=== PATIENT | male | born 1980 | race American Indian/Alaskan Native ===

== ENCOUNTER 2017-02-26 23:26 | Inpatient (IN) | payer MEDICAID ==
--- NOTE | 2017-02-26 23:40 | C.PDOC ---
History Of Present Illness Patient presents to the ER with a complaint of being depressed and hearing voices telling him to hurt himself. Denies HI or SI. Time Seen by Provider: 02/26/17 23:38 Chief Complaint (Nursing): Psychiatric Evaluation History Per: Patient History/Exam Limitations: no limitations Onset/Duration Of Symptoms: Days Current Symptoms Are (Timing): Still Present Suicide/Self Injury Attempted (Context): None Modifying Factor(s): None Associated Symptoms: denies: Depression, Suicidal Thoughts, Suicidal Plan Involuntary Hold By: None Recent travel outside of the [place]: No Past Medical History Reviewed: Historical Data, Nursing Documentation, Vital Signs Vital Signs: Last Vital Signs Temp 97.9 F 02/27/17 05:10 Pulse 61 02/27/17 05:10 Resp 16 02/27/17 05:10 BP 126/86 02/27/17 05:10 Pulse Ox 97 02/27/17 05:10 - Medical History PMH: Anxiety, Schizophrenia Surgical History: No Surg Hx Family History: States: No Known Family Hx - Social History Hx Alcohol Use: No Hx Substance Use: No - Immunization History Hx Tetanus Toxoid Vaccination: No Hx Influenza Vaccination: No Hx Pneumococcal Vaccination: No Review Of Systems Constitutional: Negative for: Fever, Chills Eyes: Negative for: Vision Change Cardiovascular: Negative for: Chest Pain Respiratory: Negative for: Shortness of Breath Gastrointestinal: Negative for: Nausea, Vomiting, Diarrhea Musculoskeletal: Negative for: Back Pain Skin: Negative for: Rash Neurological: Negative for: Weakness Psych: Negative for: Suicidal ideation, Other (Homicidal ideation) Physical Exam - Physical Exam Appears: Non-toxic, No Acute Distress Skin: Warm, Dry Head: Normacephalic Eye(s): bilateral: Normal Inspection Oral Mucosa: Moist Neck: Supple Chest: Symmetrical, No Tenderness Cardiovascular: Rhythm Regular, No Murmur Respiratory: Normal Breath Sounds, No Rales, No Rhonchi, No Wheezing Gastrointestinal/Abdominal: Soft, No Tenderness Back: No CVA Tenderness Extremity: Normal ROM Extremity: Bilateral: Atraumatic, Normal Color And Temperature Neurological/Psych: Oriented x3, Normal Speech, Normal Cognition Gait: Steady ED Course And Treatment - Laboratory Results Result Diagrams: 02/27/17 00:09 02/27/17 00:09 O2 Sat by Pulse Oximetry: 97 (Room air) Pulse Ox Interpretation: Normal Progress Note: Blood work and urinalysis ordered. Crisis notified. Disposition Discussed With Dr.: Loyd Whyte Comment: accepted the pt on hisservice and took over the care at 5:23 AM Doctor Will See Patient In The: Hospital Counseled Patient/Family Regarding: Studies Performed, Diagnosis - Disposition Disposition: HOSPITALIZED Disposition Time: 23:39 Condition: FAIR Forms: [facility] ([place]) - POA Present On Arrival: None - Clinical Impression Clinical Impression: Schizoaffective disorder - Scribe Statement The provider has reviewed the documentation as recorded by the Scribe Matthew Rojas All medical record entries made by the Scribe were at my direction and personally dictated by me. I have reviewed the chart and agree that the record accurately reflects my personal performance of the history, physical exam, medical decision making, and the department course for this patient. I have also personally directed, reviewed, and agree with the discharge instructions and disposition. Decision To Admit - Pt Status Changed To: Hospital Disposition Of: Inpatient - Admit Certification Admit to Inpatient:: After my assessment, the patient will require hospitalization for at least two midnights. This is because of the severity of symptoms shown, intensity of services needed, and/or the medical risk in this patient being treated as an outpatient. - InPatient: Physician Admission Certification: I certify that this patient requires 2 or more midnights of care for the following reason:: After my assessment, the patient will require hospitalization for at least two midnights. This is because of the severity of symptoms shown, intensity of services needed, and/or the medical risk in this patient being treated as an outpatient. - . Bed Request Type: Psychiatry Admitting Physician: Loyd Whyte Patient Diagnosis: Schizoaffective disorder
[2017-02-27 00:14] LABS: BASO % 0.5 % (0.0-2.0); EOS # 0.3 K/uL (0.0-0.7); EOS % 3.4 % (0.0-4.0); HEMATOCRIT 42.7 % (35.0-51.0); LYMPH # 1.6 K/uL (1.0-4.3); LYMPH % 20.8 % (20.0-40.0); MEAN CELL VOLUME 94.7 fL (80.0-94.0); MEAN CORPUSCULAR HGB CONC 32.7 g/dL (33.0-37.0); MEAN PLATELET VOLUME 8.6 fL (7.2-11.7); MONO # 0.9 K/uL (0.0-0.8); MONO % 10.9 % (0.0-10.0); NRBC % 0.1 % (0.0-2.0); RED CELL DISTRIBUTION WIDTH 13.8 % (11.5-14.5); WHITE BLOOD COUNT 7.9 K/uL (4.8-10.8)
[2017-02-27 00:22] LABS: CHLORIDE 101 mmol/L (98-107); POTASSIUM 3.6 mmol/L (3.6-5.2); SODIUM 141 mmol/L (132-148)
[2017-02-27 00:24] LABS: ALB/GLOB RATIO 1.1 (1.0-2.1); ALKALINE PHOSPHATASE 74 U/L (38-126); AST/SGOT 28 U/L (17-59); BILIRUBIN,TOTAL 0.7 mg/dL (0.2-1.3); CARBON DIOXIDE 29 mmol/L (22-30); GFR AFRICAN-AMERICAN > 60; TOTAL PROTEIN 6.9 g/dL (6.3-8.3)
[2017-02-27 00:25] LABS: ALCOHOL SERUM < 10 mg/dl (0-10); ALT/SGPT 35 U/L (21-72); BLOOD UREA NITROGEN 10 mg/dL (9-20); CALCIUM 9.1 mg/dl (8.6-10.4); GLUCOSE,RANDOM 88 mg/dL (75-110)
[2017-02-27 02:30] LABS: RBC URINE < 1 /hpf (0-3); URINE BILIRUBIN NEGATIVE (NEGATIVE); URINE BLOOD NEGATIVE (NEGATIVE); URINE COLOR Yellow (YELLOW); URINE GLUCOSE (UA) NORMAL (Normal); URINE KETONE NEGATIVE (NEGATIVE); URINE LEUKOCYTE ESTERASE NEG Leu/uL (Negative); URINE PROTEIN NEGATIVE (NEGATIVE)
--- NOTE | 2017-02-27 08:35 | PCM.BM ---
<Maritza Borjas - Last Filed: 02/27/17 08:32> Treatment Plan Problems - Problems identified on initial assessmt Depression Date Initiated: 02/27/17 Time Initiated: 08:30 Assessment reference: NA Status: Active Substance Abuse Date Initiated: 02/27/17 Time Initiated: 08:30 Assessment reference: NA Status: Active Treatment assets and liabiliti Patient Assests: cooperative, ADL independent, cognitively intact Patient Liabilities: live alone, substance abuse (PCP Debra) - Milieu Protocol Maintain good personal hygiene: daily Encourage regular showers Maintain personal safety: every shift Educate patient to report safety concerns to staff, every shift Monitor environment for contraband/sharps Medication safety: Monitor for expected outcome, potential side effects: every shift, Assess barriers to learning: every shift, Assess readiness for medication education: every shift <Sushma Cochran - Last Filed: 03/01/17 08:59> Discharge/Continuing Care - Education Needs Education Needs: Patient Medication, Patient Placement options, Patient Community resources - Discharge Discharge Criteria: Tolerates medication w/o severe side effects, Free of Suicidal thoughts, No longer exhibiting s/s of withdrawal, Reduction of target symptoms <Loyd Whyte - Last Filed: 03/01/17 11:13> - Diagnosis (1) Schizoaffective disorder Status: Acute Interventions: 03/01/17 11:13 * Assess/adjust medications daily and /or as needed * See patient on an individual basis 7x/week to assess status of hallucinations * Discuss risks, benefits, side effects and alternatives of medications *
--- NOTE | 2017-02-27 10:39 | PCM.PSYCH ---
Initial Psychiatric Evaluation - Initial Psychiatric Evaluation Type of Admission: Voluntary Legal Status: Capacity Chief Complaint (in patient's own words): I was hearing voices' History of Present Illness and Precipitating Events: Pt. is a 36 Y/O AA single, unemployed male, who came to the hospital because of hearing voices. Pt. reports that he also was using PCP, and marijuana. Pt. remained disorganized and internally preoccupied throughout the interview. He remained a poor historian and was superficially cooperative but guarded about the details. Patient reports that yesterday he went by to see his 15 year old daughter and his daughter mother called the family services assistant on him. Pt. reports that he was feeling depressed and then he started to use drugs. Pt. reports that he has been hearing voices for a long time and they tell him that he is "no good" because he does not have a job" Pt. reports that he was prescribed Risperdal in the past and the medication helped him. Pt. reports that his family is not very supportive of him because of the drugs involvement. 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 Pt. reports that he stopped working because of his mental illness. Patient remained irritable and agitated and appeared paranoid and delusional. He reports of auditory hallucinations, hearing voices of god and spirits and reports visual hallucinations, seeing spirits. Pt. denies any court involvement or arrest. Pt. reports depressed mood but denies any thoughts of hurting himself. He appeared disheveled and unkempt. Past medical history None reported Past Psychiatric History - Past Psychiatric History Previous Treatment History: Inpatient Pertinent Medical Hx (Current Medical&Sleep Prob, Allergies): Allergies Allergy/AdvReac Type Severity Reaction Status Date / Time No Known Allergies Allergy Unverified 02/26/17 23:36 No Known Home Med 02/26/17 Review of Systems - Review of Systems All systems: reviewed and no additional remarkable complaints except - Psychiatric Psychiatric: Anxiety, Irritability, Paranoia Mental Status Examination - Personal Presentation Personal Presentation: Looks stated age - Affect Affect: Constricted - Motor Activity Motor Activity: Psychomotor Retardation - Reliability in Providing Information Reliability in Providing Information: Poor, due to alteration in thoughts, Poor , due to altered mood - Speech Speech: Disorganized - Mood Mood: Depressed, Anxious - Formal Thought Process Formal Thought Process: Hallucinations, Delusions, Paranoia, Loosening of associations - Hallucinations/Delusions Hallucinations: Visual, Auditory Delusions: Persecution - Obsessions/Compulsions Obsessions: No Compulsions: No - Cognitive Functions Orientation: Person, Place, Situation, Time Sensorium: Alert Attention/Concentration: Attentive Abstract Thinking: [place] Estimate of Intelligence: Below average Judgement: Imparied, as evidence by: Poor judgement, Imparied, as evidence by: Lack of insight into illness - Risk Risk: Suicidal, Diminished functioning - Strength & Assets Inventory Strength & Assets Inventory: Family support DSM 5 DX - DSM 5 DSM 5 Diagnosis: Schizoaffective disorder bipolar type PCP use disorder moderate cannabis use disorder mild - Recommended/Plan of Treatment Treatment Recommendations and Plan of Treatment: Schizoaffective disorder bipolar type CBT Psychoeducation Supportive therapy, group therapy, individual therapy Risperdal 2 mg by mouth daily at bedtime Celexa 20 mg pO Daily Neurontin 100 mg by mouth 3 times a day Trazodone 50 mg by mouth daily at bedtime PCP use disorder moderate CBT Psychoeducation Supportive therapy, individual therapy Use OR for abstinence Cannabis use disorder mild CBT Psychoeducation Supportive therapy, individual therapy Use OR for abstinence - Smoking Cessation Smoking Cessation Initiated: No
--- NOTE | 2017-02-28 11:46 | PCM.PYCHPN ---
Psychiatric Progress Note - Psychiatric Progress Note Patient seen today, length of contact: 15 min Patient Chief Complaint: I am still hearing voices' Problems Identified/Issues Discussed: Patient seen and evaluated, chart reviewed and discussed with the nurse. Patient remained disorganized and internally preoccupied. Patient remained isolated, confined and withdrawn. He still reports of hearing voices. Patient still appears paranoid and delusional. He reports depressed mood and remained isolated and withdrawn. He denies any suicidal ideation or homicidal ideation. He is taking medication and denies any side effects. Supportive therapy and psychoeducation were given. Medication Change: Yes (Start Depakote, start Prolixin, DC Risperdal) Medical Record Reviewed: Yes Mental Status Examination - Cognitive Function Orientation: Person, Place, Situation, Time Memory: Intact Attention: WNL Concentration: Poor Association: Loose Fund of Knowledge: Poor - Mood Mood: Depressed, Anxious - Affect Affect: Constricted - Speech Speech: Soft - Formal Thought Process Formal Thought Process: Hallucinations, Delusions, Paranoia, Loosening of associations - Suicidal Ideation Suicidal Ideation: No - Homicidal Ideation Homicidal Ideation: No Goal/Treatment Plan - Goal/Treatment Plan Need for Continued Stay: Discharge may exacerbated symptoms, Severe functional impairment Progress Toward Problem(s) and Goals/Treatment Plan: Schizoaffective disorder bipolar type CBT Psychoeducation Supportive therapy, group therapy, individual therapy DC Risperdal 2 mg by mouth daily at bedtime Start Depakote 500 mg by mouth twice a day Celexa 10 mg pO Daily Neurontin 100 mg by mouth 3 times a day Trazodone 100 mg by mouth daily at bedtime Start Prolixin 5 mg by mouth twice a day PCP use disorder moderate CBT Psychoeducation Supportive therapy, individual therapy Use MO for abstinence Cannabis use disorder mild CBT Psychoeducation Supportive therapy, individual therapy Use MO for abstinence - Smoking Cessation Smoking Cessation Initiated: No
[2017-02-28] MEDS: Divalproex 500 mg DR Tab PO SCH (22:02)
[2017-03-01 08:13] VITALS: BP 104/69; PULSE 55; RESP 19; TEMP 97.9; O2SAT 99
[2017-03-01] MEDS: Divalproex 500 mg DR Tab PO SCH (09:30)
--- NOTE | 2017-03-01 10:34 | PCM.PYCHDC ---
Mental Status Examination - Mental Status Examination Orientation: Person, Place, Situation, Time Memory: Intact Mood: Neutral Affect: Constricted Speech: Soft Attention: WNL Concentration: WNL Association: WNL Fund of Knowledge: WNL Formal Thought Process: No Impairment Description of patient's judgement and insight: Partially impaired Psychotic Thoughts and Behaviors: denies any AVH Suicidal Ideation: No Current Homicidal Ideation?: No Discharge Summary - Discharge Note Reason for Hospitalization: Pt. is a 36 Y/O AA single, unemployed male, who came to the hospital because of hearing voices. Pt. reports that he also was using PCP, and marijuana. Pt. remained disorganized and internally preoccupied throughout the interview. He remained a poor historian and was superficially cooperative but guarded about the details. Patient reports that yesterday he went by to see his 15 year old daughter and his daughter mother called the director global market research on him. Pt. reports that he was feeling depressed and then he started to use drugs. Pt. reports that he has been hearing voices for a long time and they tell him that he is "no good" because he does not have a job" Pt. reports that he was prescribed Risperdal in the past and the medication helped him. Pt. reports that his family is not very supportive of him because of the drugs involvement. 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 Pt. reports that he stopped working because of his mental illness. Patient remained irritable and agitated and appeared paranoid and delusional. He reports of auditory hallucinations, hearing voices of god and spirits and reports visual hallucinations, seeing spirits. Pt. denies any court involvement or arrest. Pt. reports depressed mood but denies any thoughts of hurting himself. He appeared disheveled and unkempt. Consultations:: List each consultation separately and include: 1. Reason for request. 2. Findings. 3. Follow-up Summary of Hospital Course include:: 1. Description of specific treatment plan utilized for patients during their course of treatmen. 2. Summarize the time- course for resolution of acute symptoms and/or regressed behaviors. 3. Describe issues identified and worked on during hospitalization. 4. Describe medication utilized. 5. Describe medical problems identified and treated. 6. Reassessment of suicide risk Summary of Hospital Course: During the course of his stay, patient (pt) started progressively improving, however he remained paranoid. Pt mentioned that he came here two nights ago, since then he is getting medications and now he is feeling better. He signed AMA and demanded to get discharged. He denied any feelings of hopelessness, helplessness, and worthlessness, denied any problem with the sleep or appetite, denied suicidal ideation or homicidal ideation. Pt denied any auditory or visual hallucinations. He refused to take any prescriptions of any medications. - Final Diagnosis (DSM 5) Condition upon Discharge: FAIR DSM 5: Schizoaffective disorder bipolar type PCP use disorder moderate Cannabis use disorder mild Disposition: AGAINST MEDICAL ADVICE Follow-up Treatment Plan: Education: Pt was educated and counseled about the risks and benefits of taking and not taking medications. Pt was educated and counseled about the risks of drinking and abusing drugs. Pt was educated and counseled to go to the ER or call 911 if pt develop suicidal ideation or homicidal ideation, worsening of symptoms or severe side effects of the meds. - Smoking Cessation Smoking Cessation Medication prescribed: No - Antipsychotic Medications Pt discharged on 2 or more routine antipsychotic medications: No
== END 2017-03-01 10:40 | disposition left against medical advice (07) | DRG 430 ==
LOC: C.ER 23:26 → C.5E 02-27 05:21
PROVIDERS: ADMIT Psychiatry & Neurology Psychiatry; ATTEND Psychiatry & Neurology Psychiatry
DX: F25.0 Schizoaffective disorder, bipolar type (principal); F12.90 Cannabis use, unspecified, uncomplicated; F16.90 Hallucinogen use, unspecified, uncomplicated

== ENCOUNTER 2017-04-05 00:14 | Inpatient (IN) | payer MEDICAID ==
--- NOTE | 2017-04-05 00:41 | C.PDOC ---
History Of Present Illness Patient presents to the ER tearful, stating he is depressed and has suicidal ideation with no plan. Patient denies physical complaints at this time. Time Seen by Provider: 04/05/17 00:41 Chief Complaint (Nursing): Psychiatric Evaluation History Per: Patient History/Exam Limitations: no limitations Onset/Duration Of Symptoms: Days Current Symptoms Are (Timing): Still Present Suicide/Self Injury Attempted (Context): None Modifying Factor(s): None Severity: None Pain Scale Rating Of: 0 Associated Symptoms: Depression, Suicidal Thoughts. denies: Suicidal Plan Involuntary Hold By: None Recent travel outside of the [place]: No Past Medical History Reviewed: Historical Data, Nursing Documentation, Vital Signs Vital Signs: Last Vital Signs Temp 98.1 F 04/05/17 00:33 Pulse 70 04/05/17 00:33 Resp 14 04/05/17 00:33 BP 117/75 04/05/17 00:33 Pulse Ox 98 04/05/17 01:42 - Medical History PMH: Anxiety, Schizophrenia Surgical History: No Surg Hx Family History: States: Unknown Family Hx - Social History Hx Alcohol Use: No Hx Substance Use: Yes - Immunization History Hx Tetanus Toxoid Vaccination: No Hx Influenza Vaccination: No Hx Pneumococcal Vaccination: No Review Of Systems Constitutional: Negative for: Fever, Chills Gastrointestinal: Negative for: Nausea, Vomiting, Diarrhea Psych: Positive for: Depression, Suicidal ideation Physical Exam - Physical Exam Appears: Non-toxic, No Acute Distress Skin: Warm, Dry Head: Normacephalic Oral Mucosa: Moist Chest: Symmetrical Cardiovascular: Rhythm Regular Respiratory: No Rales, No Rhonchi, No Wheezing Gastrointestinal/Abdominal: Soft, No Tenderness Neurological/Psych: Oriented x3 ED Course And Treatment - Laboratory Results Result Diagrams: 04/05/17 01:14 04/05/17 01:14 O2 Sat by Pulse Oximetry: 98 (Room air) Pulse Ox Interpretation: Normal Progress Note: Blood work and urinalysis ordered. Crisis notified. Disposition Discussed With : Nikky Gifford Comment: accepted the pt on her service and took over the care at 2:40 AM Doctor Will See Patient In The: Hospital Counseled Patient/Family Regarding: Studies Performed, Diagnosis - Disposition Disposition: HOSPITALIZED Disposition Time: 00:41 Condition: FAIR Forms: [email or web address] (Macedonian) - POA Present On Arrival: None - Clinical Impression Clinical Impression: Schizoaffective disorder - Scribe Statement The provider has reviewed the documentation as recorded by the Scribe Matthew Rojas All medical record entries made by the Scribe were at my direction and personally dictated by me. I have reviewed the chart and agree that the record accurately reflects my personal performance of the history, physical exam, medical decision making, and the department course for this patient. I have also personally directed, reviewed, and agree with the discharge instructions and disposition. Decision To Admit - Pt Status Changed To: Hospital Disposition Of: Inpatient - Admit Certification Admit to Inpatient:: After my assessment, the patient will require hospitalization for at least two midnights. This is because of the severity of symptoms shown, intensity of services needed, and/or the medical risk in this patient being treated as an outpatient. - InPatient: Physician Admission Certification: I certify that this patient requires 2 or more midnights of care for the following reason:: After my assessment, the patient will require hospitalization for at least two midnights. This is because of the severity of symptoms shown, intensity of services needed, and/or the medical risk in this patient being treated as an outpatient. - . Bed Request Type: Psychiatry Admitting Physician: Nikky Gifford Patient Diagnosis: Schizoaffective disorder
[2017-04-05 01:25] LABS: BASO % 0.4 % (0.0-2.0); EOS # 0.4 K/uL (0.0-0.7); EOS % 4.3 % (0.0-4.0); LYMPH # 1.8 K/uL (1.0-4.3); LYMPH % 21.4 % (20.0-40.0); MEAN CELL VOLUME 94.3 fL (80.0-94.0); MEAN CORPUSCULAR HEMOGLOBIN 31.7 pg (27.0-31.0); MEAN CORPUSCULAR HGB CONC 33.6 g/dL (33.0-37.0); MEAN PLATELET VOLUME 8.4 fL (7.2-11.7); MONO # 0.7 K/uL (0.0-0.8); MONO % 8.3 % (0.0-10.0); NRBC % 0.1 % (0.0-2.0); RED CELL DISTRIBUTION WIDTH 13.7 % (11.5-14.5); WHITE BLOOD COUNT 8.6 K/uL (4.8-10.8)
[2017-04-05 01:46] LABS: CHLORIDE 103 mmol/L (98-107); SODIUM 142 mmol/L (132-148)
[2017-04-05 01:47] LABS: POTASSIUM 3.8 mmol/L (3.6-5.2)
[2017-04-05 01:48] LABS: GFR AFRICAN-AMERICAN > 60
[2017-04-05 01:49] LABS: ALB/GLOB RATIO 1.2 (1.0-2.1); ALKALINE PHOSPHATASE 65 U/L (38-126); ALT/SGPT 42 U/L (21-72); AST/SGOT 33 U/L (17-59); BILIRUBIN,TOTAL 0.4 mg/dL (0.2-1.3); BLOOD UREA NITROGEN 11 mg/dL (9-20); CARBON DIOXIDE 27 mmol/L (22-30); GLUCOSE,RANDOM 95 mg/dL (75-110); TOTAL PROTEIN 6.6 g/dL (6.3-8.3)
[2017-04-05 01:50] LABS: ALCOHOL SERUM < 10 mg/dl (0-10)
[2017-04-05 03:11] LABS: RBC URINE < 1 /hpf (0-3); URINE BILIRUBIN NEGATIVE (NEGATIVE); URINE BLOOD NEGATIVE (NEGATIVE); URINE COLOR Straw (YELLOW); URINE GLUCOSE (UA) NORMAL (Normal); URINE KETONE NEGATIVE (NEGATIVE); URINE LEUKOCYTE ESTERASE TRACE Leu/uL (Negative); URINE PROTEIN NEGATIVE (NEGATIVE); URINE UROBILINOGEN NORMAL mg/dL (0.2-1.0); WBC URINE 6 /hpf (0-5)
[2017-04-05 03:47] VITALS: O2SAT 97
--- NOTE | 2017-04-05 15:15 | PCM.BM ---
<Jami Dawson - Last Filed: 04/05/17 15:13> Treatment Plan Problems - Problems identified on initial assessmt Depression Date Initiated: 04/05/17 Time Initiated: 04:00 Assessment reference: NA Status: Active Suicidal Ideation Date Initiated: 04/05/17 Time Initiated: 04:00 Treatment assets and liabiliti Patient Assests: cooperative, ADL independent, cognitively intact Patient Liabilities: financial problems, poor support system, substance abuse ( PCP), imparied memory - Milieu Protocol Maintain good personal hygiene: daily Encourage regular showers, daily Remind patient to perform daily oral care, every shift Assist patient to perform ADL's Maintain personal safety: every shift Educate patient to report safety concerns to staff, every shift Monitor environment for contraband/sharps Medication safety: Monitor for expected outcome, potential side effects: every shift, Assess barriers to learning: every shift, Assess readiness for medication education: every shift <Mervin Muller - Last Filed: 04/07/17 15:58> - Diagnosis (1) Schizoaffective disorder, bipolar type Status: Acute Interventions: Assess/had just medications daily and/or as needed See patient on an individual basis 7x/week to assess status of depression Discussed risks, benefits, side effects and alternatives of medications 04/07/17 15:56 (2) Cannabis use disorder, severe, dependence Status: Acute Interventions: Assess 7x/week regarding severity of withdrawal symptoms Educated regarding risks, benefits, side effects and alternatives of medications Used motivational interviewing for abstinence Use CBT for relapse prevention Medication management for withdrawal symptoms Encourage medication assisted treatment 04/07/17 15:59 (3) Phencyclidine (PCP) use disorder, severe, dependence Status: Acute Interventions: Assess 7x/week regarding severity of withdrawal symptoms Educated regarding risks, benefits, side effects and alternatives of medications Used motivational interviewing for abstinence Use CBT for relapse prevention Medication management for withdrawal symptoms Encourage medication assisted treatment 04/07/17 15:59 <Sushma Cochran - Last Filed: 04/08/17 10:45> Family Contact Family involvement: Famliy/SO not involved - Goals for Treatment Patient goals for treatment: no statement given Discharge/Continuing Care - Education Needs Education Needs: Patient Medication, Patient Coping Skills, Patient Placement options, Patient Community resources - Discharge Discharge Criteria: Tolerates medication w/o severe side effects, Free of Suicidal thoughts, No longer exhibiting s/s of withdrawal Discharge to:: [facility] - Treatment Team Participation Discussed with Family/SO: No Was Patient/Family/SO present at Treatment Team Meeting: No (Pt refused to attend treatment team and sign.)
--- NOTE | 2017-04-06 18:46 | PCM.PSYCH ---
Initial Psychiatric Evaluation - Initial Psychiatric Evaluation Type of Admission: Voluntary Legal Status: Capacity Chief Complaint (in patient's own words): I am depressed. History of Present Illness and Precipitating Events: Patient is a 36 years old, single, unemployed, -Guyanese male with history of schizoaffective disorder bipolar type, PCP use disorder and cannabis use disorder was admitted due to worsening symptoms of depression and withdrawing from substance use. During evaluation, patient remained superficially cooperative, irritable and guarded. Was difficult to obtain history. Patient was admitted yesterday but refused to speak. Today again it was ready difficult to engage the patient in conversation due to his irritability. Patient appeared internally preoccupied. Covering his face frequently with his gown. Most of the history is obtained from old records. Patient reported feeling depressed, decreased sleep, no change in appetite but lost 50 pounds in last 3 months due to sweating. When asked the meaning of sweating patient became irritable. Reported frequent suicidal ideations last had 3 weeks ago with plan to walk into traffic. Patient reported history of one previous suicidal attempt by hanging self. Also reported auditory and visual hallucinations and delusions of persecution thinking someone is following him. Patient has history of cannabis and PCP use. Reported he started using cannabis and PCP at 14 years of age. He was smoking cannabis 2 times daily. His last use was 2 days ago. PCP was using once daily and last use 3 days ago. Denied use of any other drugs including cocaine, heroine or alcohol. Denied smoking cigarettes. Patient was born in [place], has ninth grade of education. He is not working. 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 Lives alone. Is and has one 15 years old daughter who lives with her grandmother. His height is 6 feet 3-1/2 inches and weight is 225 pounds. Current Medications: Active Medications Generic Name Dose Route Start Last Admin Trade Name Freq PRN Reason Stop Dose Admin Benztropine Mesylate 0.5 mg 04/05/17 10:00 04/06/17 10:01 Cogentin PO 0.5 mg DAILY TALIA Administration Citalopram Hydrobromide 10 mg 04/05/17 10:00 04/06/17 10:01 Celexa PO 10 mg DAILY TALIA Administration Docusate Sodium 100 mg 04/05/17 02:34 Colace PO BID PRN Constipation Haloperidol 5 mg 04/07/17 00:00 Haldol PO Q6 TALIA Haloperidol Lactate 5 mg 04/07/17 00:00 Haldol IM Q6 TALIA Hydroxyzine HCl 25 mg 04/05/17 02:34 Atarax PO Q6 PRN Anxiety Ibuprofen 400 mg 04/05/17 02:43 Motrin Tab PO Q8H PRN Pain, Mild (1-3) Lorazepam 1 mg 04/05/17 02:34 Ativan PO Q6 PRN Anxiety Risperidone 2 mg 04/06/17 22:00 Risperdal Tab PO HS TALIA Trazodone HCl 50 mg 04/05/17 02:34 Desyrel PO HS PRN Insomnia Past Psychiatric History - Past Psychiatric History Previous Treatment History: Inpatient History of Abuse: None reported History of ETOH/Drug Use: See HPI History of Family Illness: None reported Pertinent Medical Hx (Current Medical&Sleep Prob, Allergies): Allergies Allergy/AdvReac Type Severity Reaction Status Date / Time No Known Allergies Allergy Verified 04/05/17 00:35 No Known Home Med 02/26/17 Review of Systems - Psychiatric Psychiatric: Depression, Hallucinations, Paranoia Mental Status Examination - Personal Presentation Personal Presentation: Looks stated age - Affect Affect: Blunted - Motor Activity Motor Activity: Other - Reliability in Providing Information Reliability in Providing Information: Poor, due to alteration in thoughts - Speech Speech: Disorganized - Mood Mood: Other (Angry) - Formal Thought Process Formal Thought Process: Other (Internally preoccupied) - Hallucinations/Delusions Hallucinations: Other (None reported) Delusions: Other - Obsessions/Compulsions Obsessions: None Compulsions: None - Cognitive Functions Orientation: Person, Place, Situation, Time Sensorium: Alert Attention/Concentration: Attentive Abstract Thinking: [place] Estimate of Intelligence: Average Judgement: Intact, as evidence by: Insight regarding need for hospitalization Memory: Recent intact, as evidence by: Other, Remote intact, as evidenced by: Ability to recall historical events - Risk Risk: Withdrawal, Diminished functioning - Strength & Assets Inventory Strength & Assets Inventory: Other (Partially cooperative) - Limitations Limitations: Living alone DSM 5 DX - DSM 5 DSM 5 Diagnosis: Schizoaffective disorder bipolar type Cannabis use disorder severe PCP use disorder severe - Recommended/Plan of Treatment Treatment Recommendations and Plan of Treatment: Patient education Supportive therapy Continue treatment with Risperdal. According to previous record, Risperdal helped him in the past. Other when necessary medications. Projected ELOS: 8-10 days - Smoking Cessation Smoking Cessation Initiated: No
--- NOTE | 2017-04-07 15:40 | PCM.PYCHPN ---
Psychiatric Progress Note - Psychiatric Progress Note Patient seen today, length of contact: 15 minutes Patient Chief Complaint: I'm not feeling better. I'm still stressed. Problems Identified/Issues Discussed: Patient seen. Chart reviewed. Case discussed with the staff. Issues related to illness and treatment were discussed with the patient. Reported compliant with treatment with no adverse affects. Still patient is irritable, paranoid. Still covered his face with the sheet. Not cooperative. With difficult to evaluate the patient. At the time of evaluation, patient was awake alert oriented 3, no auditory visual hallucinations, no suicidal ideations or homicidal ideations. Medical Problems: None reported Diagnostic Results: Reviewed DSM 5 Symptoms Update: Some improvement with treatment Medication Change: Yes (Started Depakote 500 mg twice a day) Medical Record Reviewed: Yes Mental Status Examination - Cognitive Function Orientation: Person, Place, Situation, Time Memory: Intact Attention: WNL Concentration: WNL Association: WN Fund of Knowledge: [facility] Decription of patient's judgement and insights: Fair - Mood Mood: Other (Angry) - Affect Affect: Blunted - Speech Speech: Appropriate - Formal Thought Process Formal Thought Process: Other (Internally preoccupied) - Suicidal Ideation Suicidal Ideation: No - Homicidal Ideation Homicidal Ideation: No Goal/Treatment Plan - Goal/Treatment Plan Need for Continued Stay: Remain at risks for inpatient hospitalization, Discharge may exacerbated symptoms, Severe functional impairment Progress Toward Problem(s) and Goals/Treatment Plan: Patient education Supportive therapy Continue treatment as before Estimated Date of D/C: 04/14/17 - Smoking Cessation Smoking Cessation Initiated: No
[2017-04-07] MEDS: Divalproex 500 mg DR Tab PO SCH (17:41)
[2017-04-08 07:42] VITALS: BP 110/71; PULSE 63; RESP 18; TEMP 98.3
[2017-04-08] MEDS: Divalproex 500 mg DR Tab PO SCH (09:51)
--- NOTE | 2017-04-08 15:31 | PCM.PYCHDC ---
Mental Status Examination - Mental Status Examination Orientation: Person, Place, Situation, Time Memory: Intact Mood: Neutral Affect: Other (Appropriate) Speech: Appropriate Attention: WNL Concentration: WNL Association: WNL Fund of Knowledge: WNL Formal Thought Process: No Impairment Description of patient's judgement and insight: Fair Suicidal Ideation: No Current Homicidal Ideation?: No Discharge Summary - Discharge Note Reason for Hospitalization: Schizoaffective disorder Cannabis use disorder PCP use disorder Laboratory Data: Reviewed Consultations:: List each consultation separately and include: 1. Reason for request. 2. Findings. 3. Follow-up Summary of Hospital Course include:: 1. Description of specific treatment plan utilized for patients during their course of treatmen. 2. Summarize the time- course for resolution of acute symptoms and/or regressed behaviors. 3. Describe issues identified and worked on during hospitalization. 4. Describe medication utilized. 5. Describe medical problems identified and treated. 6. Reassessment of suicide risk Summary of Hospital Course: Patient is a 36 years old, single, unemployed, -[place] male with history of schizoaffective disorder bipolar type, PCP use disorder and cannabis use disorder was admitted due to worsening symptoms of depression and withdrawing from substance use. During evaluation, patient remained superficially cooperative, irritable and guarded. Was difficult to obtain history. Patient was admitted yesterday but refused to speak. Today again it was ready difficult to engage the patient in conversation due to his irritability. Patient appeared internally preoccupied. Covering his face frequently with his gown. Most of the history is obtained from old records. Patient reported feeling depressed, decreased sleep, no change in appetite but lost 50 pounds in last 3 months due to sweating. When asked the meaning of sweating patient became irritable. Reported frequent suicidal ideations last had 3 weeks ago with plan to walk into traffic. Patient reported history of one previous suicidal attempt by hanging self. Also reported auditory and visual hallucinations and delusions of persecution thinking someone is following him. Patient has history of cannabis and PCP use. Reported he started using cannabis and PCP at 14 years of age. He was smoking cannabis 2 times daily. His last use was 2 days ago. PCP was using once daily and last use 3 days ago. Denied use of any other drugs including cocaine, heroine or alcohol. Denied smoking cigarettes. Patient was born in [place], has ninth grade of education. He is not working. 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 Lives alone. Is and has one 15 years old daughter who lives with her grandmother. His height is 6 feet 3-1/2 inches and weight is 225 pounds. During his stay on the unit, most of the time patient was isolative in his room. He was started on treatment. Patient was visible on the unit only for a few times, Restoril time he was isolative in his room. Today patient was stable and ready for discharge. At the time of evaluation and discharge, patient was awake alert oriented 3, had no delusions, no auditory or visual hallucinations, no suicidal ideations or homicidal ideations. Patient was discharged in a stable condition. - Diagnosis (1) Schizoaffective disorder, bipolar type Status: Acute (2) Cannabis use disorder, severe, dependence Status: Acute (3) Phencyclidine (PCP) use disorder, severe, dependence Status: Acute - Final Diagnosis (DSM 5) Condition upon Discharge: FAIR Disposition: HOME/ ROUTINE Prescriptions/Medication Reconciliation: Benztropine [Cogentin] 1 mg PO DAILY #30 tab Citalopram [celeXA] 10 mg PO DAILY #30 tab Divalproex [Depakote DR] 500 mg PO BID #60 tcp risperiDONE [RisperDAL Tab] 3 mg PO HS #30 tab traZODone [Desyrel] 50 mg PO HS PRN #30 tab PRN Reason: Insomnia - Smoking Cessation Smoking Cessation Medication prescribed: No - Antipsychotic Medications Pt discharged on 2 or more routine antipsychotic medications: No
== END 2017-04-08 10:30 | disposition home or self-care (01) | DRG 430 ==
LOC: C.ER 00:14 → C.5E 02:43
PROVIDERS: ADMIT Psychiatry & Neurology Psychiatry; ATTEND Psychiatry & Neurology Psychiatry
PROC: HZ59ZZZ Individual Psychotherapy for Substance Abuse Treatment, Supportive (ICD-10-PCS; principal; 2017-04-05)
PROC: HZ2ZZZZ Detoxification Services for Substance Abuse Treatment (ICD-10-PCS; 2017-04-05)
PROC: HZ52ZZZ Individual Psychotherapy for Substance Abuse Treatment, Cognitive-Behavioral (ICD-10-PCS; 2017-04-05)
DX: F25.0 Schizoaffective disorder, bipolar type (principal); R45.851 Suicidal ideations; F15.23 Other stimulant dependence with withdrawal; F12.288 Cannabis dependence with other cannabis-induced disorder; F41.9 Anxiety disorder, unspecified

== ENCOUNTER 2017-06-09 18:37 | Emergency (ER) | payer MEDICAID ==
[2017-06-09 18:53] VITALS: TEMP 97.9
--- NOTE | 2017-06-09 19:29 | C.PDOC ---
History Of Present Illness 37 year old male presents to the ED for psychiatric evaluation, stating he has been depressed for around 2 days. Patient denies suicidal/homicidal ideation and has no other complaints at this time. Chief Complaint (Nursing): Psychiatric Evaluation History Per: Patient History/Exam Limitations: no limitations Onset/Duration Of Symptoms: Days (2) Current Symptoms Are (Timing): Still Present Suicide/Self Injury Attempted (Context): None Modifying Factor(s): None Associated Symptoms: Depression. denies: Suicidal Thoughts, Suicidal Plan Involuntary Hold By: None Recent travel outside of the [place]: No Additional History Per: Patient Past Medical History Reviewed: Historical Data, Nursing Documentation, Vital Signs Vital Signs: Last Vital Signs Temp 97.9 F 06/09/17 18:46 Pulse 84 06/09/17 18:46 Resp 20 06/09/17 18:46 BP 132/92 H 06/09/17 18:46 Pulse Ox 95 06/09/17 19:53 - Medical History PMH: Anxiety, Bipolar Disorder, Depression, Schizophrenia Denies: Diabetes, Hepatitis, HIV, HTN, Chronic Kidney Disease, Seizures, Sexually Transmitted Disease Surgical History: No Surg Hx - [facility] Procedures DETOXIFICATION SERVICES FOR SUBSTANCE ABUSE TREATMENT (04/05/17) INDIV PSYCHOTHERAPY FOR SUBSTANCE ABUSE TREATMENT, SUPPORT (04/05/17) INDIV PSYCHOTHERAPY FOR SUBSTANCE ABUSE, COGNITIV BEHAVIORAL (04/05/17) REPAIR UPPER LIP, EXTERNAL APPROACH (05/31/17) Family History: States: Unknown Family Hx - Social History Hx Alcohol Use: No Hx Substance Use: Yes - Immunization History Hx Tetanus Toxoid Vaccination: No Hx Influenza Vaccination: No Hx Pneumococcal Vaccination: No Review Of Systems Psych: Positive for: Depression. Negative for: Suicidal ideation Physical Exam - Physical Exam Appears: Non-toxic, No Acute Distress Skin: Normal Color, Warm, Dry Head: Atraumatic, Normacephalic Eye(s): bilateral: Normal Inspection Oral Mucosa: Moist Neck: Supple Chest: Symmetrical, No Deformity, No Tenderness Cardiovascular: Rhythm Regular, No Murmur Respiratory: Normal Breath Sounds, No Rales, No Rhonchi, No Wheezing Extremity: Normal ROM, Capillary Refill (less than 2 seconds ) Neurological/Psych: Oriented x3, Normal Speech, Normal Cognition Gait: Steady ED Course And Treatment - Laboratory Results Result Diagrams: 06/09/17 19:40 06/09/17 19:40 O2 Sat by Pulse Oximetry: 95 (on RA) Pulse Ox Interpretation: Normal Progress Note: Bloodwork and urinalysis ordered and reviewed. Disposition Discussed With Dr.: Loyd Whyte Counseled Patient/Family Regarding: Diagnosis - Disposition Referrals: [facility] [Outside] Disposition: HOME/ ROUTINE Disposition Time: 19:52 Condition: STABLE Instructions: Depression (ED) Forms: [employer] (Bulgarian) - POA Present On Arrival: None - Clinical Impression Clinical Impression: Depression - Scribe Statement The provider has reviewed the documentation as recorded by the Scribe (Valeria Castellanos) Provider Attestation: All medical record entries made by the Scribe were at my direction and personally dictated by me. I have reviewed the chart and agree that the record accurately reflects my personal performance of the history, physical exam, medical decision making, and the department course for this patient. I have also personally directed, reviewed, and agree with the discharge instructions and disposition.
[2017-06-09 19:46] LABS: BASO # 0.1 K/uL (0.0-0.2); BASO % 1.1 % (0.0-2.0); EOS # 0.3 K/uL (0.0-0.7); EOS % 3.7 % (0.0-4.0); HEMATOCRIT 40.4 % (35.0-51.0); LYMPH # 1.8 K/uL (1.0-4.3); LYMPH % 20.7 % (20.0-40.0); MEAN CELL VOLUME 95.4 fL (80.0-94.0); MEAN CORPUSCULAR HEMOGLOBIN 31.4 pg (27.0-31.0); MEAN CORPUSCULAR HGB CONC 32.9 g/dL (33.0-37.0); MEAN PLATELET VOLUME 8.3 fL (7.2-11.7); MONO # 1.2 K/uL (0.0-0.8); MONO % 13.7 % (0.0-10.0); RED CELL DISTRIBUTION WIDTH 14.3 % (11.5-14.5); WHITE BLOOD COUNT 8.9 K/uL (4.8-10.8)
[2017-06-09 19:55] LABS: ALB/GLOB RATIO 1.4 (1.0-2.1); ALCOHOL SERUM < 10 mg/dl (0-10); ALKALINE PHOSPHATASE 68 U/L (38-126); ALT/SGPT 61 U/L (21-72); AST/SGOT 40 U/L (17-59); BILIRUBIN,TOTAL 0.4 mg/dL (0.2-1.3); BLOOD UREA NITROGEN 13 mg/dL (9-20); CALCIUM 8.7 mg/dl (8.6-10.4); CARBON DIOXIDE 32 mmol/L (22-30); CHLORIDE 104 mmol/L (98-107); GFR AFRICAN-AMERICAN > 60; GLUCOSE,RANDOM 82 mg/dL (75-110); POTASSIUM 4.3 mmol/L (3.6-5.2); SODIUM 142 mmol/L (132-148); TOTAL PROTEIN 6.9 g/dL (6.3-8.3)
[2017-06-09 20:55] VITALS: BP 140/90; PULSE 69; RESP 18; O2SAT 98
== END 2017-06-09 21:16 | disposition home or self-care (01) ==
LOC: C.ER 18:37
DX: F32.9 Major depressive disorder, single episode, unspecified (principal)

== ENCOUNTER 2017-09-21 06:55 | Emergency (ER) | payer MEDICAID ==
[2017-09-21 07:07] VITALS: BP 134/78; PULSE 79; RESP 20; TEMP 97.9; O2SAT 96
[2017-09-21] MEDS ORDERED: Naproxen 550 mg Tab PO STA (07:24)
[2017-09-21] MEDS ORDERED: Clotrimazole 1% Cream(30 gm) TOP STA (07:24)
--- NOTE | 2017-09-21 07:32 | C.PDOC ---
History Of Present Illness 37-year-old male, presents to the emergency department with complaints of pain to bilateral feet. Patient states he has a Hx of arthritis, and was seen by podiatry a few months ago. Patient was given a cream, and states he lost it. Denies trauma, numbness, weakness. No other complaints at this time. Time Seen by Provider: 09/21/17 07:12 Chief Complaint (Nursing): Lower Extremity Problem/Injury History Per: Patient History/Exam Limitations: no limitations Past Medical History Reviewed: Historical Data, Nursing Documentation, Vital Signs Vital Signs: Last Vital Signs Temp 97.9 F 09/21/17 07:03 Pulse 79 09/21/17 07:03 Resp 20 09/21/17 07:03 BP 134/78 09/21/17 07:03 Pulse Ox 96 09/21/17 07:38 - Medical History PMH: Anxiety, Bipolar Disorder, Bronchitis, Depression, Schizophrenia - [facility] Procedures DETOXIFICATION SERVICES FOR SUBSTANCE ABUSE TREATMENT (04/05/17) INDIV PSYCHOTHERAPY FOR SUBSTANCE ABUSE TREATMENT, SUPPORT (04/05/17) INDIV PSYCHOTHERAPY FOR SUBSTANCE ABUSE, COGNITIV BEHAVIORAL (04/05/17) REPAIR UPPER LIP, EXTERNAL APPROACH (05/31/17) Family History: States: No Known Family Hx - Social History Hx Alcohol Use: No Hx Substance Use: Yes - Immunization History Hx Tetanus Toxoid Vaccination: No Hx Influenza Vaccination: No Hx Pneumococcal Vaccination: No Review Of Systems Constitutional: Negative for: Fever Gastrointestinal: Negative for: Vomiting Musculoskeletal: Positive for: Foot Pain Skin: Negative for: Rash Physical Exam - Physical Exam Appears: Non-toxic, No Acute Distress Skin: Normal Color, Warm, Dry, No Rash, Other (poorly kept feet, hyperkeratotic yellow nails, very dry skin, calluses to plantar surface and scaliness between digits. ) Head: Atraumatic, Normacephalic Eye(s): bilateral: Normal Inspection Neck: Normal ROM Chest: Symmetrical Extremity: Normal ROM, No Tenderness, No Pedal Edema, No Calf Tenderness, No Deformity, Other (see skin) Neurological/Psych: Oriented x3, Normal Speech Gait: Steady ED Course And Treatment O2 Sat by Pulse Oximetry: 96 (RA) Pulse Ox Interpretation: Normal Medical Decision Making Medical Decision Making: Impression: 37yo M comes in with pain to B/L feet, no trauma Plan: * Clotrimazole cream * Naproxen Disposition Counseled Patient/Family Regarding: Diagnosis, Need For Followup, Rx Given - Disposition Referrals: Podiatry Clinic [Outside] Disposition: HOME/ ROUTINE Disposition Time: 07:48 Condition: STABLE Additional Instructions: Apply cream to foot twice daily Take ibuprofen for pain as needed Follow up with podiatry clinic Prescriptions: Ibuprofen [Motrin] 600 mg PO Q8 #30 tab Instructions: Corns and Calluses Forms: [employer] ([place]) - POA Present On Arrival: None - Clinical Impression Clinical Impression: Callus of foot, Tinea pedis, Foot pain, bilateral - Scribe Statement The provider has reviewed the documentation as recorded by the Scribe (Xiomara Yan) All medical record entries made by the Scribe were at my direction and personally dictated by me. I have reviewed the chart and agree that the record accurately reflects my personal performance of the history, physical exam, medical decision making, and the department course for this patient. I have also personally directed, reviewed, and agree with the discharge instructions and disposition.
[2017-09-21] MEDS ORDERED: Naproxen 550 mg Tab PO ONE (07:37)
== END 2017-09-21 08:15 | disposition home or self-care (01) ==
LOC: C.ER 06:55
DX: L84 Corns and callosities (principal); B35.3 Tinea pedis; M79.672 Pain in left foot; M79.671 Pain in right foot